=== PATIENT | male | born 1980 | race Caucasian/White ===

== ENCOUNTER 2020-05-31 15:16 | Emergency (ER) | payer BC ==
[2020-05-31] MEDS ORDERED: Sodium Chloride 0.9% 10 ML Syringe FLUSH PRN (15:42)
[2020-05-31] MEDS ORDERED: Ondansetron 4 MG/2 ML SDV IVPUSH ONE (15:51)
[2020-05-31] MEDS ORDERED: Sodium Chloride 0.9% 1,000 ML IV SCH ×2 (16:00→17:00)
[2020-05-31] MEDS ORDERED: Acetaminophen 325 MG Tab PO ONE (17:26)
[2020-05-31] MEDS ORDERED: cefTRIAXone 2 GM in Sodium Chloride 0.9% 100 ML IV ONE (17:35)
--- NOTE | 2020-05-31 17:42 | EDM.PDOC ---
ED HPI GENERAL MEDICAL PROBLEM - General Chief Complaint: Fever Stated Complaint: FEVER/CHILLS Time Seen by Provider: 05/31/20 15:41 Source of Information: Reports: Patient, RN Notes Reviewed - History of Present Illness INITIAL COMMENTS - FREE TEXT/NARRATIVE: 39 yr old male comes in with 2 day hx of fever, chills, occasional nausea and vomiting. He has also had voiding urgency and frequency. He is not diabetic. No cough, fever or difficulty breathing. - Related Data Allergies Allergy/AdvReac Type Severity Reaction Status Date / Time No Known Allergies Allergy Verified 05/31/20 15:32 Home Meds: Home Meds Cefdinir [Omnicef] 300 mg PO BID #20 cap 05/31/20 [Rx] Past Medical History Cardiovascular History: Reports: High Cholesterol, Hypertension - Past Surgical History Male Surgical History: Reports: Vasectomy Social & Family History - Tobacco Use Tobacco Use Status *Q: Never Tobacco User Second Hand Smoke Exposure: No - Caffeine Use Caffeine Use: Reports: Coffee - Recreational Drug Use Recreational Drug Use: No ED ROS GENERAL - Review of Systems Review Of Systems: See Below Constitutional: Reports: Fever, Chills HEENT: Reports: No Symptoms Respiratory: Denies: Shortness of Breath, Cough Cardiovascular: Denies: Chest Pain GI/Abdominal: Reports: Nausea, Vomiting. Denies: Abdominal Pain, Diarrhea Musculoskeletal: Denies: Back Pain Skin: Reports: No Symptoms Neurological: Reports: Weakness. Denies: Headache, Trouble Speaking, Difficulty Walking ED EXAM, GENERAL - Physical Exam Exam: See Below General Appearance: Alert, Other (moderately ill appearing at time of initial exam) Ears: Normal External Exam Head: Atraumatic Neck: Supple Respiratory/Chest: No Respiratory Distress, Lungs Clear, Normal Breath Sounds. No: Rhonchi, Wheezing Cardiovascular: Tachycardia GI/Abdominal: Soft, Non-Tender, Other (RLQ, RUQ nontender). No: Guarding Back Exam: No: CVA Tenderness (L), CVA Tenderness (R) Extremities: Normal Inspection Neurological: Alert, Oriented, No Motor/Sensory Deficits Psychiatric: Normal Affect, Normal Mood Skin Exam: Warm, Dry, Normal Color, No Rash Course - Vital Signs Last Recorded V/S: Last Vital Signs Temp 98.9 F 05/31/20 18:55 Pulse 110 H 05/31/20 18:55 Resp 24 H 05/31/20 18:55 BP 107/70 05/31/20 18:55 Pulse Ox 96 05/31/20 18:55 - Orders/Labs/Meds Orders: Active Orders 24 hr Category Date Time Status CULTURE BLOOD [BC] Stat Lab 05/31/20 16:07 Received CULTURE URINE [RM] Stat Lab 05/31/20 16:50 Received Sodium Chloride 0.9% [Normal Saline] 1,000 ml Med 05/31/20 16:00 Active IV ONETIME Sodium Chloride 0.9% [Normal Saline] 1,000 ml Med 05/31/20 17:00 Active IV ONETIME Sodium Chloride 0.9% [Saline Flush] Med 05/31/20 15:42 Active 10 ml FLUSH ASDIRECTED PRN Peripheral IV Insertion Adult [OM.PC] Stat Oth 05/31/20 15:42 Ordered Medication Orders Sodium Chloride (Normal Saline) 1,000 mls @ 999 mls/hr IV ONETIME [facility] Last Admin: 05/31/20 16:14 Dose: 999 mls/hr Documented by: TONYA Sodium Chloride (Normal Saline) 1,000 mls @ 999 mls/hr IV ONETIME [facility] Last Admin: 05/31/20 17:12 Dose: 999 mls/hr Documented by: TONYA Sodium Chloride (Saline Flush) 10 ml FLUSH ASDIRECTED PRN PRN Reason: Keep Vein Open Last Admin: 05/31/20 16:10 Dose: 10 ml Documented by: TONYA Labs: Laboratory Tests 05/31/20 05/31/20 05/31/20 Range/Units 16:07 16:07 16:07 WBC 8.67 (4.23-9.07) K/mm3 RBC 4.56 L (4.63-6.08) M/mm3 Hgb 14.1 (13.7-17.5) gm/dl Hct 40.7 (40.1-51.0) % MCV 89.3 (79.0-92.2) fl MCH 30.9 (25.7-32.2) pg MCHC 34.6 (32.2-35.5) g/dl RDW Std Deviation 42.1 (35.1-43.9) fL Plt Count 127 L (163-337) K/mm3 MPV 11.8 (9.4-12.3) fl Neut % (Auto) 89.3 H (34.0-67.9) % Lymph % (Auto) 3.0 L (21.8-53.1) % Reeves % (Auto) 7.0 (5.3-12.2) % Eos % (Auto) 0.1 L (0.8-7.0) Baso % (Auto) 0.1 (0.1-1.2) % Neut # (Auto) 7.74 H (1.78-5.38) K/mm3 Lymph # (Auto) 0.26 L (1.32-3.57) K/mm3 Reeves # (Auto) 0.61 (0.30-0.82) K/mm3 Eos # (Auto) 0.01 L (0.04-0.54) K/mm3 Baso # (Auto) 0.01 (0.01-0.08) K/mm3 Manual Slide Review Abnormal smear Sodium 132 L (136-145) mEq/L Potassium 3.4 L (3.5-5.1) mEq/L Chloride 96 L (98-107) mEq/L Carbon Dioxide 25 (21-32) mEq/L Anion Gap 14.4 (5-15) BUN 19 H (7-18) mg/dL Creatinine 1.3 (0.7-1.3) mg/dL Est Cr Clr Drug Dosing 87.07 mL/min Estimated GFR (MDRD) > 60 (>60) mL/min BUN/Creatinine Ratio 14.6 (14-18) Glucose 119 H (74-106) mg/dL Lactic Acid 2.0 (0.4-2.0) mmol/L Calcium 9.1 (8.5-10.1) mg/dL Total Bilirubin 1.5 H (0.2-1.0) mg/dL AST 66 H (15-37) U/L ALT 89 H (16-63) U/L Alkaline Phosphatase 115 (46-116) U/L Total Protein 7.2 (6.4-8.2) g/dl Albumin 3.2 L (3.4-5.0) g/dl Globulin 4.0 gm/dL Albumin/Globulin Ratio 0.8 L (1-2) Urine Color (Yellow) Urine Appearance (Clear) Urine pH (5.0-8.0) Ur Specific [place] (1.005-1.030) Urine Protein (Negative) Urine Glucose (UA) (Negative) Urine Ketones (Negative) Urine Occult Blood (Negative) Urine Nitrite (Negative) Urine Bilirubin (Negative) Urine Urobilinogen (0.2-1.0) Ur Leukocyte Esterase (Negative) Urine RBC (0-5) /hpf Urine WBC (0-5) /hpf Ur Squamous Epith Cells (0-5) /hpf Urine Bacteria (FEW) /hpf Urine Mucus (FEW) /hpf 05/31/20 Range/Units 16:50 WBC (4.23-9.07) K/mm3 RBC (4.63-6.08) M/mm3 Hgb (13.7-17.5) gm/dl Hct (40.1-51.0) % MCV (79.0-92.2) fl MCH (25.7-32.2) pg MCHC (32.2-35.5) g/dl RDW Std Deviation (35.1-43.9) fL Plt Count (163-337) K/mm3 MPV (9.4-12.3) fl Neut % (Auto) (34.0-67.9) % Lymph % (Auto) (21.8-53.1) % Reeves % (Auto) (5.3-12.2) % Eos % (Auto) (0.8-7.0) Baso % (Auto) (0.1-1.2) % Neut # (Auto) (1.78-5.38) K/mm3 Lymph # (Auto) (1.32-3.57) K/mm3 Reeves # (Auto) (0.30-0.82) K/mm3 Eos # (Auto) (0.04-0.54) K/mm3 Baso # (Auto) (0.01-0.08) K/mm3 Manual Slide Review Sodium (136-145) mEq/L Potassium (3.5-5.1) mEq/L Chloride (98-107) mEq/L Carbon Dioxide (21-32) mEq/L Anion Gap (5-15) BUN (7-18) mg/dL Creatinine (0.7-1.3) mg/dL Est Cr Clr Drug Dosing mL/min Estimated GFR (MDRD) (>60) mL/min BUN/Creatinine Ratio (14-18) Glucose (74-106) mg/dL Lactic Acid (0.4-2.0) mmol/L Calcium (8.5-10.1) mg/dL Total Bilirubin (0.2-1.0) mg/dL AST (15-37) U/L ALT (16-63) U/L Alkaline Phosphatase (46-116) U/L Total Protein (6.4-8.2) g/dl Albumin (3.4-5.0) g/dl Globulin gm/dL Albumin/Globulin Ratio (1-2) Urine Color Yellow (Yellow) Urine Appearance Clear (Clear) Urine pH 6.5 (5.0-8.0) Ur Specific [place] 1.015 (1.005-1.030) Urine Protein 1+ H (Negative) Urine Glucose (UA) Negative (Negative) Urine Ketones Negative (Negative) Urine Occult Blood 2+ H (Negative) Urine Nitrite Negative (Negative) Urine Bilirubin Negative (Negative) Urine Urobilinogen 0.2 (0.2-1.0) Ur Leukocyte Esterase 1+ H (Negative) Urine RBC 5-10 H (0-5) /hpf Urine WBC 10-20 H (0-5) /hpf Ur Squamous Epith Cells 0-5 (0-5) /hpf Urine Bacteria Moderate H (FEW) /hpf Urine Mucus Few (FEW) /hpf Meds: Medications Generic Name Dose Route Start Last Admin Trade Name Freq PRN Reason Stop Dose Admin Sodium Chloride 1,000 mls @ 999 mls/hr 05/31/20 16:00 05/31/20 16:14 Normal Saline IV 999 mls/hr ONETIME [facility] Administration Sodium Chloride 1,000 mls @ 999 mls/hr 05/31/20 17:00 05/31/20 17:12 Normal Saline IV 999 mls/hr ONETIME [facility] Administration Sodium Chloride 10 ml 05/31/20 15:42 05/31/20 16:10 Saline Flush FLUSH 10 ml ASDIRECTED PRN Administration Keep Vein Open Discontinued Medications Generic Name Dose Route Start Last Admin Trade Name Freq PRN Reason Stop Dose Admin Acetaminophen 975 mg 05/31/20 17:26 05/31/20 18:02 Tylenol PO 05/31/20 17:27 975 mg NOW ONE Administration Ceftriaxone Sodium 2 gm/ 100 mls @ 200 mls/hr 05/31/20 17:35 05/31/20 18:02 Sodium Chloride IV 05/31/20 18:04 200 mls/hr ONETIME ONE Administration Ondansetron HCl 4 mg 05/31/20 15:51 05/31/20 16:10 Zofran IVPUSH 05/31/20 15:52 4 mg ONETIME ONE Administration Departure - Departure Time of Disposition: 18:45 Disposition: Home, Self-Care 01 Condition: Fair Clinical Impression: Pyelonephritis - Discharge Information Prescriptions: Cefdinir [Omnicef] 300 mg PO BID #20 cap Instructions: Pyelonephritis, Adult, [id number] Referrals: PCP,None [Primary Care Provider] - Forms: ED Department Discharge Additional Instructions: Rest, drink plenty of water. You have been given rocephin antibiotic, 2 grams IV at this time here in the ED. Continue cefdinir 300 mg twice daily for the next 10 days or until gone, first dose tomorrow morning. Prescription has been sent electronically to the [facility] at the [facility]. Urine culture has been done. Follow up clinic if not much better within 2 to 3 days as expected. Return to ED if symptoms worsening in any way. Sepsis Event Note (ED) - Evaluation Sepsis Screening Result: Possible Sepsis Risk - Focused Exam Vital Signs: Vital Signs Temp Temp Pulse Resp BP Pulse Ox 05/31/20 18:55 98.9 F 110 H 24 H 107/70 96 05/31/20 18:04 99.2 F 122 H 24 H 104/75 98 05/31/20 18:02 99.2 F 05/31/20 17:07 100.7 F H 123 H 18 98/70 96 05/31/20 15:27 102.5 F H 145 H 18 115/72 95 - My Orders Last 24 Hours: My Active Orders 05/31/20 15:42 Sodium Chloride 0.9% [Saline Flush] 10 ml FLUSH ASDIRECTED PRN Peripheral IV Insertion Adult [OM.PC] Stat 05/31/20 16:00 Sodium Chloride 0.9% [Normal Saline] 1,000 ml IV ONETIME 05/31/20 16:07 CULTURE BLOOD [BC] Stat 05/31/20 16:50 CULTURE URINE [RM] Stat 05/31/20 17:00 Sodium Chloride 0.9% [Normal Saline] 1,000 ml IV ONETIME - Assessment/Plan Last 24 Hours: My Active Orders 05/31/20 15:42 Sodium Chloride 0.9% [Saline Flush] 10 ml FLUSH ASDIRECTED PRN Peripheral IV Insertion Adult [OM.PC] Stat 05/31/20 16:00 Sodium Chloride 0.9% [Normal Saline] 1,000 ml IV ONETIME 05/31/20 16:07 CULTURE BLOOD [BC] Stat 05/31/20 16:50 CULTURE URINE [RM] Stat 05/31/20 17:00 Sodium Chloride 0.9% [Normal Saline] 1,000 ml IV ONETIME
== END 2020-05-31 19:00 | disposition home or self-care (01) ==
LOC: JD.ED 15:16
DX: N12 Tubulo-interstitial nephritis, not specified as acute or chronic (principal); I10 Essential (primary) hypertension
CPT/HCPCS: 36415; 80053; 81001; 83605; 85025; 87040; 87086; 87186; 96365; 96375; 99283; 99284-25; A9270-GY; J0696; J2405; J7030; J7050

== ENCOUNTER 2020-06-01 10:40 | Emergency (ER) | payer BC ==
--- NOTE | 2020-06-01 11:01 | EDM.PDOC ---
ED HPI GENERAL MEDICAL PROBLEM - General Chief Complaint: General Stated Complaint: FLUIDS Time Seen by Provider: 06/01/20 10:52 Source of Information: Reports: Patient, RN Notes Reviewed - History of Present Illness INITIAL COMMENTS - FREE TEXT/NARRATIVE: 39 yr old male comes in for recheck having been called by lab that his BC from yesterday afternoon visit is growing out a Gram neg marvin along with his urine culture. I thought it best he come back in to see how is doing. He actually is feeling tremendously better from yesterday afternoon. His fever is gone. He had a little indigestion early but no further nausea or vomiting. He had some mild R back pain during the night but that is gone. He was treated with 2 grams rocephin IV yesterday afternoon/evening. He did take his first dose of cefdinir this morning without difficulty. He is not diabetic. No hx of prior UTI's or known kidney problems. Right Flank Pain Score (Numeric/FACES): 1 - Related Data Allergies Allergy/AdvReac Type Severity Reaction Status Date / Time No Known Allergies Allergy Verified 06/01/20 10:59 Home Meds: Home Meds Cefdinir [Omnicef] 300 mg PO BID #20 cap 05/31/20 [Rx] Past Medical History Cardiovascular History: Reports: High Cholesterol, Hypertension - Past Surgical History Male Surgical History: Reports: Vasectomy Social & Family History - Caffeine Use Caffeine Use: Reports: Coffee ED ROS GENERAL - Review of Systems Review Of Systems: See Below Constitutional: Reports: Fever (yesterday), Diaphoresis (yesterday) HEENT: Reports: No Symptoms Respiratory: Denies: Shortness of Breath Cardiovascular: Denies: Chest Pain GI/Abdominal: Reports: Nausea, Vomiting (yesterday). Denies: Abdominal Pain : Reports: Dysuria, Frequency, Urgency Musculoskeletal: Reports: Back Pain (gone) Neurological: Reports: No Symptoms ED EXAM, GENERAL - Physical Exam Exam: See Below General Appearance: Alert, No Apparent Distress Head: Atraumatic. No: Facial Swelling Neck: Supple Respiratory/Chest: No Respiratory Distress, Lungs Clear, Normal Breath Sounds Cardiovascular: Regular Rate, Rhythm GI/Abdominal: Non-Tender Back Exam: No: CVA Tenderness (L), CVA Tenderness (R) Extremities: Normal Inspection Skin Exam: Warm, Dry, Normal Color Course - Vital Signs Last Recorded V/S: Last Vital Signs Temp 97.1 F 06/01/20 10:52 Pulse 78 06/01/20 10:52 Resp 20 06/01/20 10:52 BP 112/72 06/01/20 10:52 Pulse Ox 100 06/01/20 10:52 - Re-Assessments/Exams Free Text/Narrative Re-Assessment/Exam: 06/01/20 11:56 Pt looks so good on return a short time ago, afebrile, heart rate in the 70's, I am not going to repeat labs. He does not appear to be in need of further IV abx. Discussed with patient the seriousness of growing out a positive blood culture. It looks like the 2 grams IV rocephin has that under control, at least at this point in time. Strong return precautions given. He will continue the cefdinir 300 mg bid for 10 days as prescribed. Departure - Departure Time of Disposition: 11:13 Disposition: Home, Self-Care 01 Condition: Fair Clinical Impression: Pyelonephritis - Discharge Information Referrals: Becca Sandhu MD [Primary Care Provider] - Forms: ED Department Discharge Additional Instructions: Continue the Cefdinir 300 mg twice daily as prescribed. Continue to drink plenty of water. See Dr Sandhu in about 1 week for follow up/recheck. Return to ED as discussed if symptoms worsening in any way. Sepsis Event Note (ED) - Focused Exam Vital Signs: Vital Signs Temp Pulse Resp BP Pulse Ox 06/01/20 10:52 97.1 F 78 20 112/72 100
== END 2020-06-01 11:25 | disposition home or self-care (01) ==
LOC: JD.ED 10:40
DX: N12 Tubulo-interstitial nephritis, not specified as acute or chronic (principal); I10 Essential (primary) hypertension
CPT/HCPCS: 99283

== ENCOUNTER 2020-06-17 13:42 | Emergency (ER) | payer BC ==
[2020-06-17] MEDS ORDERED: Sodium Chloride 0.9% 10 ML Syringe FLUSH PRN (13:54)
--- NOTE | 2020-06-17 14:39 | EDM.PDOC ---
ED HPI GENERAL MEDICAL PROBLEM - General Chief Complaint: Genitourinary Problem Stated Complaint: KIDNEY AND BLADDER PAIN AND URINE INCONTINENCE Time Seen by Provider: 06/17/20 13:49 Source of Information: Reports: Patient, RN Notes Reviewed History Limitations: Reports: No Limitations - History of Present Illness INITIAL COMMENTS - FREE TEXT/NARRATIVE: Patient is a 39-year-old male presenting to the emergency department with complaints of bilateral flank pain, "bladder pain ", frequency, urgency, "tingling "when he urinates", and hematuria. His symptoms began last evening and have continued into today. Patient had pyelonephritis with bacteremia 1 month ago and states that early on in that illness, this is kind of how he felt. He has not had any fever, chills, nausea, vomiting, or diarrhea associated with this. Prior to 1 month ago, he had no problems with urinary tract infections. He states that he had a vas ectomy done a little over 1 month ago and feels that these infections may be related to that. Flank Pain Score (Numeric/FACES): 1 - Related Data Allergies Allergy/AdvReac Type Severity Reaction Status Date / Time No Known Allergies Allergy Verified 06/01/20 10:59 Home Meds: Home Meds Rosuvastatin [Crestor] 10 mg PO DAILY 06/17/20 [History] hydroCHLOROthiazide [Hydrochlorothiazide] 25 mg PO DAILY 06/17/20 [History] lisinopriL [Lisinopril] 10 mg PO DAILY 06/17/20 [History] Past Medical History - Past Health History Medical/Surgical History: Denies Medical/Surgical History Cardiovascular History: Reports: High Cholesterol, Hypertension - Infectious Disease History Infectious Disease History: Reports: Novel Coronavirus - Past Surgical History Male Surgical History: Reports: Vasectomy Social & Family History - Family History Family Medical History: No Pertinent Family History - Tobacco Use Tobacco Use Status *Q: Never Tobacco User - Caffeine Use Caffeine Use: Reports: Coffee, Soda - Recreational Drug Use Recreational Drug Use: No ED ROS GENERAL - Review of Systems Review Of Systems: See Below Constitutional: Reports: Fatigue. Denies: Fever, Chills HEENT: Reports: No Symptoms Respiratory: Reports: No Symptoms Cardiovascular: Reports: No Symptoms Endocrine: Reports: No Symptoms GI/Abdominal: Reports: No Symptoms. Denies: Abdominal Pain, Diarrhea, Nausea, Vomiting : Reports: Dysuria, Flank Pain, Frequency, Hematuria, Urgency Musculoskeletal: Reports: No Symptoms Skin: Reports: No Symptoms Neurological: Reports: No Symptoms Psychiatric: Reports: No Symptoms Hematologic/Lymphatic: Reports: No Symptoms Immunologic: Reports: No Symptoms ED EXAM, RENAL/ - Physical Exam Exam: See Below General Appearance: Alert, WD/WN, No Apparent Distress Respiratory/Chest: No Respiratory Distress, Lungs Clear, Normal Breath Sounds, No Accessory Muscle Use, Chest Non-Tender Cardiovascular: Normal Peripheral Pulses, Regular Rate, Rhythm, No Edema, No Gallop, No JVD, No Murmur, No Rub GI/Abdominal: Normal Bowel Sounds, Soft, Non-Tender, No Organomegaly, No Distention, No Abnormal Bruit, No Mass Back Exam: Normal Inspection, Full Range of Motion. No: CVA Tenderness (L), CVA Tenderness (R) Neurological: Alert, Oriented, CN II-XII Intact, Normal Cognition, Normal Gait, Normal Reflexes, No Motor/Sensory Deficits Psychiatric: Normal Affect, Normal Mood Skin Exam: Warm, Dry, Intact, Normal Color, No Rash Course - Vital Signs Last Recorded V/S: Last Vital Signs Temp 97.3 F 06/17/20 13:49 Pulse 79 06/17/20 13:49 Resp 15 06/17/20 13:49 BP 123/77 06/17/20 13:49 Pulse Ox 100 06/17/20 13:49 - Orders/Labs/Meds Orders: Active Orders 24 hr Category Date Time Status Peripheral IV Care [RC] . DIRECTED Care 06/17/20 13:54 Active Abdomen Pelvis w Cont [CT] Stat Exams 06/17/20 14:46 Taken CULTURE BLOOD [BC] Stat Lab 06/17/20 14:07 Received CULTURE BLOOD [BC] Stat Lab 06/17/20 14:15 Received CULTURE URINE [RM] Stat Lab 06/17/20 14:35 Received Sodium Chloride 0.9% [Saline Flush] Med 06/17/20 13:54 Active 10 ml FLUSH ASDIRECTED PRN Sodium Chloride 0.9% [Saline Flush] Med 06/17/20 15:00 Active 10 ml FLUSH BOLUS Blood Culture x2 Reflex Set [OM.PC] Stat Oth 06/17/20 13:54 Ordered Peripheral IV Insertion Adult [OM.PC] Stat Oth 06/17/20 13:54 Ordered Medication Orders Sodium Chloride (Saline Flush) 10 ml FLUSH ASDIRECTED PRN PRN Reason: Keep Vein Open Last Admin: 06/17/20 14:45 Dose: 10 ml Documented by: REX Sodium Chloride (Saline Flush) 10 ml FLUSH BOLUS LIBERTY Last Admin: 06/17/20 15:06 Dose: 10 ml Documented by: SHEREE Labs: Laboratory Tests 06/17/20 06/17/20 06/17/20 Range/Units 14:07 14:07 14:07 WBC 10.06 H (4.23-9.07) K/mm3 RBC 5.32 (4.63-6.08) M/mm3 Hgb 16.2 D (13.7-17.5) gm/dl Hct 47.5 (40.1-51.0) % MCV 89.3 (79.0-92.2) fl MCH 30.5 (25.7-32.2) pg MCHC 34.1 (32.2-35.5) g/dl RDW Std Deviation 44.2 H (35.1-43.9) fL Plt Count 269 D (163-337) K/mm3 MPV 11.9 (9.4-12.3) fl Neut % (Auto) 67.3 (34.0-67.9) % Lymph % (Auto) 21.7 L (21.8-53.1) % Mcminn % (Auto) 8.5 (5.3-12.2) % Eos % (Auto) 2.0 (0.8-7.0) Baso % (Auto) 0.3 (0.1-1.2) % Neut # (Auto) 6.77 H (1.78-5.38) K/mm3 Lymph # (Auto) 2.18 (1.32-3.57) K/mm3 Mcminn # (Auto) 0.86 H (0.30-0.82) K/mm3 Eos # (Auto) 0.20 (0.04-0.54) K/mm3 Baso # (Auto) 0.03 (0.01-0.08) K/mm3 Manual Slide Review Normal smear Sodium 136 (136-145) mEq/L Potassium 3.5 (3.5-5.1) mEq/L Chloride 100 (98-107) mEq/L Carbon Dioxide 26 (21-32) mEq/L Anion Gap 13.5 (5-15) BUN 13 (7-18) mg/dL Creatinine 1.1 (0.7-1.3) mg/dL Est Cr Clr Drug Dosing 102.90 mL/min Estimated GFR (MDRD) > 60 (>60) mL/min BUN/Creatinine Ratio 11.8 L (14-18) Glucose 90 (74-106) mg/dL Lactic Acid 0.9 (0.4-2.0) mmol/L Calcium 9.6 (8.5-10.1) mg/dL Total Bilirubin 0.5 (0.2-1.0) mg/dL AST 28 (15-37) U/L ALT 63 (16-63) U/L Alkaline Phosphatase 89 (46-116) U/L C-Reactive Protein 0.7 (<1.0) mg/dL Total Protein 8.8 H (6.4-8.2) g/dl Albumin 4.4 (3.4-5.0) g/dl Globulin 4.4 gm/dL Albumin/Globulin Ratio 1.0 (1-2) Urine Color (Yellow) Urine Appearance (Clear) Urine pH (5.0-8.0) Ur Specific [place] (1.005-1.030) Urine Protein (Negative) Urine Glucose (UA) (Negative) Urine Ketones (Negative) Urine Occult Blood (Negative) Urine Nitrite (Negative) Urine Bilirubin (Negative) Urine Urobilinogen (0.2-1.0) Ur Leukocyte Esterase (Negative) Urine RBC (0-5) /hpf Urine WBC (0-5) /hpf Ur Epithelial Cells (0-5) /hpf Urine Bacteria (FEW) /hpf Urine Mucus (FEW) /hpf 06/17/20 Range/Units 14:35 WBC (4.23-9.07) K/mm3 RBC (4.63-6.08) M/mm3 Hgb (13.7-17.5) gm/dl Hct (40.1-51.0) % MCV (79.0-92.2) fl MCH (25.7-32.2) pg MCHC (32.2-35.5) g/dl RDW Std Deviation (35.1-43.9) fL Plt Count (163-337) K/mm3 MPV (9.4-12.3) fl Neut % (Auto) (34.0-67.9) % Lymph % (Auto) (21.8-53.1) % [place]minn % (Auto) (5.3-12.2) % Eos % (Auto) (0.8-7.0) Baso % (Auto) (0.1-1.2) % Neut # (Auto) (1.78-5.38) K/mm3 Lymph # (Auto) (1.32-3.57) K/mm3 [place]minn # (Auto) (0.30-0.82) K/mm3 Eos # (Auto) (0.04-0.54) K/mm3 Baso # (Auto) (0.01-0.08) K/mm3 Manual Slide Review Sodium (136-145) mEq/L Potassium (3.5-5.1) mEq/L Chloride (98-107) mEq/L Carbon Dioxide (21-32) mEq/L Anion Gap (5-15) BUN (7-18) mg/dL Creatinine (0.7-1.3) mg/dL Est Cr Clr Drug Dosing mL/min Estimated GFR (MDRD) (>60) mL/min BUN/Creatinine Ratio (14-18) Glucose (74-106) mg/dL Lactic Acid (0.4-2.0) mmol/L Calcium (8.5-10.1) mg/dL Total Bilirubin (0.2-1.0) mg/dL AST (15-37) U/L ALT (16-63) U/L Alkaline Phosphatase (46-116) U/L C-Reactive Protein (<1.0) mg/dL Total Protein (6.4-8.2) g/dl Albumin (3.4-5.0) g/dl Globulin gm/dL Albumin/Globulin Ratio (1-2) Urine Color Yellow (Yellow) Urine Appearance Turbid H (Clear) Urine pH 6.5 (5.0-8.0) Ur Specific [place] > or = 1.030 (1.005-1.030) Urine Protein 3+ H (Negative) Urine Glucose (UA) Negative (Negative) Urine Ketones Negative (Negative) Urine Occult Blood 3+ H (Negative) Urine Nitrite Negative (Negative) Urine Bilirubin Negative (Negative) Urine Urobilinogen 0.2 (0.2-1.0) Ur Leukocyte Esterase 2+ H (Negative) Urine RBC 30-40 H (0-5) /hpf Urine WBC Too numerous to cnt H (0-5) /hpf Ur Epithelial Cells 0-5 (0-5) /hpf Urine Bacteria Moderate H (FEW) /hpf Urine Mucus Few (FEW) /hpf Meds: Medications Generic Name Dose Route Start Last Admin Trade Name Freq PRN Reason Stop Dose Admin Sodium Chloride 10 ml 06/17/20 13:54 06/17/20 14:45 Saline Flush FLUSH 10 ml ASDIRECTED PRN Administration Keep Vein Open Sodium Chloride 10 ml 06/17/20 15:00 06/17/20 15:06 Saline Flush FLUSH 10 ml BOLUS LIBERTY Administration Discontinued Medications Generic Name Dose Route Start Last Admin Trade Name Freq PRN Reason Stop Dose Admin Ceftriaxone Sodium 2 gm/ 100 mls @ 200 mls/hr 06/17/20 14:46 Sodium Chloride IV 06/17/20 15:15 ONETIME ONE Ertapenem 1 gm/ Sodium 50 mls @ 100 mls/hr 06/17/20 14:48 06/17/20 15:19 Chloride IV 06/17/20 15:17 100 mls/hr ONETIME ONE Administration Iopamidol 50 ml 06/17/20 14:53 06/17/20 15:06 Isovue-300 (61%) IVPUSH 06/17/20 14:54 50 ml ONETIME ONE Administration Iopamidol 50 ml 06/17/20 15:13 Isovue-300 (61%) IVPUSH 06/17/20 15:14 ONETIME ONE - Re-Assessments/Exams Free Text/Narrative Re-Assessment/Exam: Patient is a 39-year-old male presenting to the emergency department with complaints of urinary symptoms. These began yesterday. He has a history of pyelonephritis with bacteremia 1 month ago and states that he felt similar to this early in that infection. I have ordered CBC, CMP, CRP, blood cultures, lactic acid, and urinalysis. If results are positive for infection or hematuria, I will order a CT scan of the abdomen pelvis with IV contrast only. 06/17/20 14:55 Lab results back thus far showed WBC of 10.06. Urine is turbid in appearance with 3+ protein, 3+ occult blood and 2+ leukocyte esterase. Micro is pending. Have ordered a CT scan of the abdomen pelvis with IV contrast only. Since patient just completed treatment for pyelonephritis with Rocephin and Omnicef, there is concern that he could have developed a multidrug resistant infection. I will give him Invanz 1G IV now and will plan for ciprofloxacin orally on discharge. 06/17/20 15:58 CT scan abdomen pelvis interpretation as follows: 1. Thick-walled bladder which is more than usually expected. Please correlate if patient has any symptoms of cystitis. 2. Incidental cyst within the right kidney. 3. No other acute abnormalities is appreciated. Remaining hematology was grossly unremarkable. Urinalysis micro shows 30-40 RBCs, WBCs too numerous to count, and moderate bacteria. He has received 1 g of Invanz. I will start him on ciprofloxacin. I will also send a referal to urology for evaluation of his recurrent urinary tract infections. Return precautions discussed. Discharge instructions as documented. Departure - Departure Time of Disposition: 16:14 Disposition: Home, Self-Care 01 Condition: Good Clinical Impression: UTI, Urinary tract infectious disease - Discharge Information *PRESCRIPTION DRUG MONITORING PROGRAM REVIEWED*: No *COPY OF PRESCRIPTION DRUG MONITORING REPORT IN PATIENT CARA: No Instructions: Urinary Tract Infection, Adult Referrals: Becca Sandhu MD [Primary Care Provider] - Moses Nelson MD [Ordering Only Provider] - Forms: ED Department Discharge Additional Instructions: You were seen in the emergency department today for recurrence of back pain, frequency and urgency of urination, blood in your urine, and burning with urination. Work-up included blood work, urinalysis, CT scan of her abdomen pelvis. Results of your work-up are consistent with a diagnosis of urinary tract infection. While in the ER, you received IV antibiotics. A prescription for ciprofloxacin has been provided to you. Take this medication as prescribed. A referral has been sent to urology for evaluation with regards to your recurrent urinary tract infections. Recommend calling first thing next Sunday morning to set up an appointment for follow-up. If you should experience fever, chills, nausea, or vomiting, please return to the emergency department for reevaluation. Sepsis Event Note (ED) - Evaluation Sepsis Screening Result: No Definite Risk - Focused Exam Vital Signs: Vital Signs Temp Pulse Resp BP Pulse Ox 06/17/20 13:49 97.3 F 79 15 123/77 100 - My Orders Last 24 Hours: My Active Orders 06/17/20 13:54 Peripheral IV Care [RC] . DIRECTED Sodium Chloride 0.9% [Saline Flush] 10 ml FLUSH ASDIRECTED PRN Blood Culture x2 Reflex Set [OM.PC] Stat Peripheral IV Insertion Adult [OM.PC] Stat 06/17/20 14:07 CULTURE BLOOD [BC] Stat 06/17/20 14:15 CULTURE BLOOD [BC] Stat 06/17/20 14:35 CULTURE URINE [RM] Stat 06/17/20 14:46 Abdomen Pelvis w Cont [CT] Stat 06/17/20 15:00 Sodium Chloride 0.9% [Saline Flush] 10 ml FLUSH BOLUS - Assessment/Plan Last 24 Hours: My Active Orders 06/17/20 13:54 Peripheral IV Care [RC] . DIRECTED Sodium Chloride 0.9% [Saline Flush] 10 ml FLUSH ASDIRECTED PRN Blood Culture x2 Reflex Set [OM.PC] Stat Peripheral IV Insertion Adult [OM.PC] Stat 06/17/20 14:07 CULTURE BLOOD [BC] Stat 06/17/20 14:15 CULTURE BLOOD [BC] Stat 06/17/20 14:35 CULTURE URINE [RM] Stat 06/17/20 14:46 Abdomen Pelvis w Cont [CT] Stat 06/17/20 15:00 Sodium Chloride 0.9% [Saline Flush] 10 ml FLUSH BOLUS
[2020-06-17] MEDS ORDERED: cefTRIAXone 2 GM in Sodium Chloride 0.9% 100 ML IV ONE (14:46)
[2020-06-17] MEDS ORDERED: Ertapenem 1 GM in Sodium Chloride 0.9% 50 ML IV ONE (14:48)
[2020-06-17] MEDS ORDERED: Iopamidol 612 MG/ML 50 ML SDV IVPUSH ONE ×2 (14:53→15:13)
[2020-06-17] MEDS ORDERED: Sodium Chloride 0.9% 10 ML Syringe FLUSH SCH (15:00)
--- NOTE | 2020-06-21 15:18 | CT ---
CT abdomen and pelvis Technique: Multiple axial sections were obtained from above the dome of the diaphragm inferiorly through the pubic symphysis. Intravenous contrast was utilized. No oral contrast was given. Delayed images were also obtained through the abdomen and pelvis. Reconstructed coronal and sagittal images were obtained. Comparison: No previous studies available. Findings: Visualized lung bases show nothing acute. Liver and spleen appears within normal limits. Adrenal glands show no nodule. Gallbladder contains no calcified gallstones. Pancreas shows no abnormality. Kidneys show symmetric contrast enhancement. Cyst is noted within the mid right kidney measuring approximately 2.5 cm. Delayed images show contrast excretion from both kidneys into the ureters and into the bladder. Bladder is diffusely thick-walled. Aorta shows no aneurysm. No retroperitoneal adenopathy or mesenteric abnormalities are seen. Appendix is seen which is normal in size. No pelvic mass or adenopathy is noted. No free fluid or inflammatory change is seen. Bone window settings were reviewed which show no acute osseous finding. Impression: 1. Thick-walled bladder which is more than usually expected. Please correlate if patient has any symptoms of cystitis. 2. Incidental cyst within the right kidney. 3. No other acute abnormality is appreciated Diagnostic code #3 MTDD
== END 2020-06-17 16:30 | disposition home or self-care (01) ==
LOC: JD.ED 13:42
DX: N39.0 Urinary tract infection, site not specified (principal); E78.00 Pure hypercholesterolemia, unspecified; I10 Essential (primary) hypertension; Z79.899 Other long term (current) drug therapy
CPT/HCPCS: 36415; 74177; 80053; 81001; 83605; 85025; 86140; 87040; 87086; 87088; 87186; 96365; 99284; J1335; Q9967